=== PATIENT | male | born 1975 | race Caucasian/White ===

== ENCOUNTER 2016-11-10 06:00 | Inpatient (IN) | payer MEDICAID ==
--- NOTE | ~2016-11-10 | CO ---
Unit #: [id number] #: [id number] Patient: DENIS MERCER [id number] [facility] [address] [place] [address] [id number] I MR#: [id number] NAME: DENIS MERCER ROOM: [facility] Age: 41 Sex: M Admission Date: 11/10/2016 : 1975 Attending Physician: Eddie Maher M.D. Primary Care Physician: Joel Santana A.P.R.N. Consultation Date: 11/10/2016 CONSULTATION REPORT SUBJECTIVE Denis is a 41-year-old with a cyst in his right eyebrow. Nursing staff was concerned about this. This was identified and addressed under his admission H and P. Please see H and P dated 11/10/2016. Dictated by... Brittany Burns P.A.-C. for Ashley Johnson/michele TD: 11/18/2016 22:17 JOB #: [id number] CONSULTATION REPORT Page 1 of 1 X Brittany Burns CONSULTATION REPORT
--- NOTE | ~2016-11-10 | PN ---
Unit #: [id number] #: [id number] Patient: LENARD MERCER [id number] [facility] [address] [place] [address] [id number] I MR#: [id number] NAME: LENARD MERCER ROOM: [facility] Age: 41 Sex: M Admission Date: 11/10/2016 : 1975 Attending Physician: Eddie Maher M.D. Admitting Physician: Eddie Maher M.D. Primary Care Physician: Lauren Khan PROGRESS NOTES DATE 11/12/2016 DISCUSSION The patient continues to complain of significant symptoms of opioid withdrawal. When queried today as to what steps he has taken to arrange for post discharge treatment, the patient replies "none." Dictated by... Eddie Maher M.D. MATTHEW/sandy TD: 11/12/2016 13:11 JOB #: [id number] TREY PROGRESS NOTES Page 1 of 1 X Eddie Maher MD X PROGRESS NOTE
--- NOTE | ~2016-11-10 | PN ---
Unit #: [id number] #: [id number] Patient: LENARD MERCER [id number] [facility] [address] [place] [address] [id number] I MR#: [id number] NAME: LENARD MERCER ROOM: [facility] Age: 41 Sex: M Admission Date: 11/10/2016 : 1975 Attending Physician: Eddie Maher M.D. Admitting Physician: Eddie Maher M.D. Primary Care Physician: Lauren Khan PROGRESS NOTES DATE 11/11/2016 DISCUSSION The patient continues to complain of significant withdrawal symptoms and continues to endorse sadness and depressed mood. We continue current treatment. Suicide precautions remain in place. Dictated by... Eddie Maher M.D. CB/sandy TD: 11/11/2016 18:34 JOB #: [id number] TREY PROGRESS NOTES Page 1 of 1 X Eddie Maher MD X PROGRESS NOTE
--- NOTE | ~2016-11-10 | DS ---
Unit #: [id number] #: [id number] Patient: LENARD MERCER [id number] [facility] [address] [place] [address] [id number] I MR#: [id number] NAME: LENARD MERCER ROOM: [facility] Age: 41 Sex: M Admission Date: 11/10/2016 : 1975 Discharge Date: 11/13/2016 Attending Physician: Eddie Maher M.D. Primary Care Physician: Keith KhanPVineetR.NVineet DISCHARGE SUMMARY REASON FOR ADMISSION The patient is a 41-year-old white male, admitted to the [facility] unit with a history following an ingestion of Xanax and heroin, which he described as a suicide attempt. HOSPITAL COURSE The patient was admitted to the [facility] unit and placed on routine detoxification protocol for opioids and p.r.n. Ativan was added. The patient has complained of significant symptoms of opioid withdrawal. On 11/12, the patient demanded discharge from the hospital and required management and a p.r.n. dose of Geodon. On 11/13, he was contrite over this episode and exhibited no signs or symptoms of withdrawal and in fact he exhibited future orientation citing, wish to begin treatment with Suboxone following his discharge from the hospital. The steps he would need to take to initiate this treatment were discussed at the time of discharge. On 11/13, he did request discharge from hospital denying suicidal ideation. Discharge was ordered. FINAL DIAGNOSES Opioid use disorder, sedative hypnotic use disorder, and antisocial personality disorder. DISPOSITION ON DISCHARGE The patient is discharged on no psychotropic or other medications. FOLLOWUP Followup will take place through the auspices of community mental health resources. PROGNOSIS Considered fair. Dictated by... Eddie Maher M.D. CB/michele TD: 11/13/2016 12:18 JOB #: [id number] Unit #: [id number] #: [id number] Patient: LENARD MERCER DISCHARGE SUMMARY Page 1 of 1 X Eddie Maher MD X DISCHARGE SUMMARY
--- NOTE | ~2016-11-10 | HP ---
Unit #: [id number] #: [id number] Patient: DENIS MERCER [id number] [place] [address] [id number] I MR#: [id number] NAME: DENIS MERCER ROOM: [facility] Age: 41 Sex: M Admission Date: 11/10/2016 : 1975 Attending Physician: Eddie Maher M.D. Admitting Physician: Eddie Maher M.D. Primary Care Physician: Joel Santana A.P.R.N. HISTORY AND PHYSICAL HISTORY OF PRESENT ILLNESS Denis is a 41 year old admitted to [facility] because of his continued drug use. He shoots heroin and abuses benzodiazepines. PAST MEDICAL HISTORY 1. Long history of illicit substance abuse to include IV drugs. 2. Obstructive sleep apnea. 3. Degenerative disc disease. PAST SURGICAL HISTORY 1. T & A 2. Uvulectomy. 3. Benign left testicular tumor resected. ALLERGIES Stadol SOCIAL HISTORY Smokes 1 1/2 packs per day. Has a long history of polysubstance abuse to include IV drugs. FAMILY HISTORY Medically noncontributory. REVIEW OF SYSTEMS CONSTITUTIONAL: No fever or chills. HEENT: Denies any sore throat, ear pain or runny nose. CARDIOVASCULAR: Denies chest pain, irregular heart rhythm or palpitations. CHEST: Denies shortness of breath or cough. No hemoptysis. GASTROINTESTINAL: Denies nausea, vomiting, diarrhea or chronic constipation. ENDOCRINE: Denies history of increased thirst or urination. No recent significant weight loss or gain. GENITOURINARY: Denies dysuria, frequency, or hematuria. SKIN: Denies any rashes. HEMATOLOGIC: Denies history of increased bleeding or bruising. MUSCULOSKELETAL: Denies any hot, swollen joints. No generalized muscle pain. NEUROLOGIC: Denies problems with vision or speech. No frequent, severe headaches. No numbness, tingling or weakness in any extremities. Denies loss of bladder or bowel control. Unit #: [id number] #: [id number] Patient: DENIS MERCER CURRENT MEDICATIONS Detox protocol PHYSICAL EXAMINATION GENERAL: Alert, well-nourished, in no apparent distress. VITAL SIGNS: Blood pressure 156/106, heart rate 72, respirations 16, temperature 98.6. WEIGHT: 220 pounds. HEIGHT: 6 foot 1 inches. SKIN: Warm and dry without rash or lesion. HEENT: Normocephalic. TMs not viewed. Oral and nasal passages clear. Conjunctivae clear. Pupils equal, round and reactive to light and accommodation. Extraocular movements intact. He has a large inclusion cyst or fatty tumor along the right brow. NECK: Supple without lymphadenopathy or thyromegaly. HEART: Regular rate and rhythm without murmur. LUNGS: Clear. ABDOMEN: Soft, nontender. : Not done. EXTREMITIES: No evidence of cyanosis, clubbing or edema. Moves all extremities without focal deficit. NEUROLOGICAL: Grossly within normal limits. Cranial Nerves: II: Visual oliveros are intact. III, IV AND : Extraocular movements are intact. Pupils are equal, round and reactive to light. V: Facial sensation is grossly normal. VII: Facial movements and expression are normal. VIII: Auditory acuity grossly intact. IX, X: Uvula is midline. Phonation is normal. XI: Patient shrugs shoulders and turns head normally. XII: Tongue protrudes in the midline. Sensory and Motor Function: Sensory and motor sensation is grossly normal. Motor: moves all extremities well. Coordination: Gait is normal. Deep Tendon Reflexes: Intact. IMPRESSION Psychiatric admission RECOMMENDATIONS PSYCHIATRIC: Per psychiatrist. MEDICAL: I see no contraindications to participating in facility's activities. MEDICAL PROGNOSIS Good. MEDICAL CONDITION Stable. Dictated by... Brittany Burns P.A.-C. for Ashley Johnson Unit #: [id number] #: [id number] Patient: DENIS MERCER TD: 11/10/2016 21:24 JOB #: [id number] HISTORY AND PHYSICAL Page 1 of 1 X Brittany Burns HISTORY AND PHYSICAL
--- NOTE | ~2016-11-10 | PA ---
Unit #: [id number] #: [id number] Patient: LENARD MERCER [id number] [place] [address] [id number] MR#: [id number] NAME: LENARD MERCER ROOM: [facility] Age: 41 Sex: M Admission Date: 11/10/2016 : 1975 Date of Assessment: 11/10/2016 Attending Physician: Eddie Maher M.D. Admitting Physician: Eddie Maher M.D. Primary Care Physician: Joel Santana A.P.R.N. PSYCHIATRIC ASSESSMENT IDENTIFYING INFORMATION The patient is a 41-year-old homeless white male with a history of methamphetamine, sedative/hypnotic and heroin use admitted following a suicide attempt. INFORMANT(S) Patient. RELIABILITY Fair. CHIEF COMPLAINT Tried to kill myself. HISTORY OF PRESENT ILLNESS The patient is a 41-year-old homeless white male with a history of abuse of methamphetamine, heroin and Xanax. The patient claims that he attempted to commit suicide 2 days prior to admission by combining heroin and Xanax. The patient reports ongoing thoughts of suicide when seen today but is also expressing future orientation reporting a wish to enter residential chemical dependence treatment. The patient laments that he has lost his home, car and job and cannot see his daughter. The patient had been prescribed Prozac many years ago and was last hospitalized at this facility in 2013 under similar circumstances. He left the facility at that time claiming "he wasn't getting no medicine." For a more complete history of present illness, please refer to previous dictated notes. PAST PSYCHIATRIC HISTORY As noted previously, the patient has been hospitalized at this facility in the past under similar circumstances. FAMILY HISTORY Noncontributory. SOCIAL HISTORY The patient is currently homeless and unemployed. He reports substance use as noted previously and is a smoker. MEDICAL HISTORY Noncontributory. MEDICATION HISTORY None. Unit #: [id number] #: [id number] Patient: LENARD MERCER ALLERGIES Stadol. MENTAL STATUS EXAM At this time, reveals the patient to be a well-developed, well-nourished disheveled white male appearing his stated age. He is in no apparent physical distress at time of the examination. He is awake, alert, oriented in all spheres. His mood is dysphoric. His affect blunted. Speech is generally relevant and coherent. There are no gross deficits in memory or cognition noted. Intelligence is judged to be in the average range based on fund of knowledge. The patient is cooperative throughout the interview. He is currently endorsing positive suicidal ideation. He denies homicidal ideation. He denies any psychotic symptoms. His judgement and insight appear to be reasonably intact. ASSETS AND LIABILITIES Patient's assets to be assessed. Liabilities, lack of resources. ADMITTING DIAGNOSES 1. Opioid use disorder. 2. Sedative/hypnotic use disorder. 3. Methamphetamine use disorder. 4. Antisocial personality disorder. PSYCHIATRIC PLAN/TREATMENT GOALS The patient remains hospitalized for safety and stabilization. Routine detoxification protocol has been ordered and suicide precautions are in place. ESTIMATED LENGTH OF STAY Three to five days with follow up to take place through the auspices of community mental health resources. I will ask the patient's oncology social work to see him regarding post discharge treatment options. Dictated by... Eddie Maher M.D. MATTHEW/sandy TD: 11/10/2016 17:43 JOB #: [id number] PSYCHIATRIC ASSESSMENT Page 1 of 1 X Eddie Maher MD X PSYCHIATRIC ASSESSMENT
[2016-11-11 09:51] LABS: BASOPHIL% 0.4 % (0-2.5); EOSINOPHIL# 0.2 X10e3 (0-0.7); EOSINOPHIL% 3.1 % (0.0-7.0); HEMATOCRIT 48.7 % (38.0-50.0); HEMOGLOBIN 15.9 gm/dL (13.0-16.0); LYMPHOCYTE# 3.1 X10e3 (1.0-3.5); LYMPHOCYTE% 42.7 % (17.0-45.0); MEAN CELL VOLUME 91.3 FL (83-96); MEAN CORPUSCULAR HEMOGLOBIN 29.7 PG (28-34); MEAN CORPUSCULAR HGB CONC 32.6 g/dL (30-36); MEAN PLATELET VOLUME 8.4 FL (6.5-11.5); MONOCYTE# 0.6 X10e3 (0-1.0); MONOCYTE% 7.9 % (3.0-12.0); NEUTROPHIL# 3.3 X10e3 (1.5-7.1); NEUTROPHIL% 45.9 % (40-75); PLATELET COUNT 249 X10e3 (140-420); RED BLOOD COUNT 5.33 X10e (3.90-5.60); RED CELL DISTRIBUTION WIDTH 13.4 % (11.0-15.5); WHITE BLOOD COUNT 7.2 X10e3 (4.0-10.5)
[2016-11-11 09:58] LABS: DIFF IND NO
[2016-11-11 09:59] LABS: BILIRUBIN,TOTAL 0.5 mg/dL (0.2-2.0); BUN/CREATININE RATIO 21.42; CREATININE SERUM 0.7 mg/dL (0.6-1.4); GLOM FILT RATE Estimated 115.6 mL/min (>60); POTASSIUM 4.5 mmol/L (3.5-5.1); PROTEIN TOTAL SERUM 6.6 g/dL (6.0-8.3)
[2016-11-16 07:06] LABS: HA AB IGM (HEPPAN) Nonreactive (()); HB CORE AB IGM (HEPPAN) Nonreactive (Nonreactive); HB S AG (HEPPAN) Nonreactive (Nonreactive); HEP C AB (HEPPAN) Reactive (Nonreactive)
== END 2016-11-13 11:55 | disposition home or self-care (01) | DRG 897 ==
LOC: P1E 08:48
PROVIDERS: Specialist
PROC: HZ2ZZZZ Detoxification Services for Substance Abuse Treatment (ICD-10-PCS; principal; 2016-11-10)
DX: F11.20 Opioid dependence, uncomplicated (principal); F13.20 Sedative, hypnotic or anxiolytic dependence, uncomplicated; F60.2 Antisocial personality disorder; Z59.0 Homelessness; Z56.0 Unemployment, unspecified; F17.210 Nicotine dependence, cigarettes, uncomplicated
CPT/HCPCS: 80053; 80074; 85025; 86592; 87522; 87806; J3486